=== PATIENT | male | born 1955 | race Caucasian/White ===

== ENCOUNTER → 2016-09-30 | Outpatient (CLI) | payer OTHER ==
[~2016-09-30] MED LIST: LEVOTHROID (S137 MCG PO; THERA-VITE W/ B1 TAB PO; VITAMIN C1000 MG PO; ZINC50 M2 PO
== END | disposition disaster alternative care site (69) ==
LOC: LBOND 17:37
DX: Z48.3 Aftercare following surgery for neoplasm (principal); L82.0 Inflamed seborrheic keratosis